=== PATIENT | male | born 1950 | race Caucasian/White ===

== ENCOUNTER 2018-08-05 08:45 | Outpatient (CLI) | payer BC ==
[~2018-08-05 08:45] MED LIST: EPINEPHrine 1 MG/ML AMP ONE; Gadobenate Dimeglumine 529 MG/1 ML (20ML VIAL) ONE; Iopamidol 300 61% 50 ML VIAL FS ONE; Lidocaine 1% PF 10 ML AMP ONE
--- NOTE | 2018-08-05 12:45 | RAD ---
RIGHT SHOULDER ARTHROGRAM: INDICATION: Chronic right shoulder pain. History of remote surgery. Right shoulder weakness. PROCEDURE: Informed consent was obtained. The patient was escorted to the procedural suite and placed in the campbell pine position. The right shoulder was prepped and draped in the standard sterile fashion. Topical a nesthesia was achieved with buffered 1% Lidocaine and subsequently a 22-gauge needle was uneventfully advanced into the right glenohumeral joint confirmed with small volume of contrast. Subsequently, 9 cc contrast cocktail containing Gadolinium radiopaque contrast, saline, epinephrine, and Lidocaine w as instilled into the right shoulder joint, confirmed with fluoroscopic imaging. Imaging was stored for documentation. No procedural complication. RADIATION EXPOSURE DATA: 0.4 minutes intermittent fluoroscopy; 1.9 mGy*^m2. FINDINGS: Contrast opacification within the right shoulder joint. There is osteoarthritis. Reference right shoulder MR arthrogram for additional details. IMPRESSION: Technically successful right shoulder arthrogram as detailed above. POS: [facility]
--- NOTE | 2018-08-05 13:27 | MRI ---
MRI OF THE RIGHT SHOULDER WITH INTRAARTICULAR CONTRAST: INDICATION: Right shoulder pain. COMPARISON: Right shoulder radiographs from a right shoulder arthrogram evaluation dated 08/05/2018. TECHNIQUE: Multiplanar, multisequence MR images were obtained of the right shoulder following the intraarticular administration of dilute Gadolinium solution. Please see the separately dictated right shoulder art hrogram for details concerning the injection technique. FINDINGS: There is a massive rotator cuff tear involving the supraspinatus, subscapularis, and the anterior to mid aspect of the infraspinatus. The supraspinatus tendon is retracted back to the level of the blake ohumeral joint. There is prominent muscular atrophy of the supraspinatus and subscapularis. There i s also complete disruption of the long head of the biceps tendon with retraction of the tendon to the level of the proximal bicipital groove. There is prominent degenerative fraying of the superior gle noid labrum. There is mild osteoarthrosis of the glenohumeral joint. There are degenerative subchon dral cyst-like abnormalities involving the superior aspect of the humeral head. There is mild to mod erate AC joint osteoarthrosis. The inferior glenohumeral ligamentous complex appears within normal l imits. IMPRESSION: 1. Massive rotator cuff tear involving the subscapularis, supraspinatus, and the anterior to mid inf raspinatus with prominent muscular atrophy of the supraspinatus and subscapularis. 2. There is complete disruption of the long head of the biceps tendon with distal retraction to the level of the bicipital groove. 3. Mild osteoarthrosis of the glenohumeral joint. 4. Mild to moderate acromioclavicular joint osteoarthrosis. POS: [facility]
[2018-08-05] MEDS ORDERED: Gadobenate Dimeglumine 529 MG/1 ML (20ML VIAL) ONE (16:47)
== END 2018-08-05 08:46 | disposition home or self-care (01) ==
LOC: RAD 08:45
PROVIDERS: ATTEND Orthopaedic Surgery
DX: R53.1 Weakness (principal); M75.101 Unspecified rotator cuff tear or rupture of right shoulder, not specified as traumatic; M19.011 Primary osteoarthritis, right shoulder
CPT/HCPCS: 23350; A9579; J0171; J7050

== ENCOUNTER 2019-01-20 11:03 | Outpatient (CLI) | payer BC ==
[2019-01-20 11:59] LABS: #Basophils 0.1 thou/uL (0.0-0.2); #Eosinphils 0.2 thou/uL (0.0-0.7); #Lymphocytes 1.4 thou/uL (1.20-3.40); #Monocytes 0.4 thou/uL (0.11-0.59); %Basophils 1.3 % (0.0-1.0); %Eosinophils 4.6 % (0.0-10.0); %Lymphocytes 28.1 % (21.0-51.0); %Monocytes 8.3 % (0.0-10.0); %Neutrophils 57.7 % (42.0-75.0); Hemoglobin 13.4 g/dL (14.0-18.0); Mean Corpuscular HGB CONC 32.8 g/dL (32.0-36.0); Mean Corpuscular Hemoglobin 30.3 pg (27.0-31.0); Mean Corpuscular Volume 92.2 fL (78.0-98.0); Mean Platelet Volume 8.3 fL (7.4-10.4); Platelet Count 274 thou/uL (130-400); RBC Distribution Width 12.7 % (11.5-14.5); Red Blood Cell (RBC) Count 4.44 mill/uL (4.70-6.10); White Blood Cell (WBC) Count 5.1 thou/uL (4.8-10.8)
--- NOTE | 2019-01-20 12:14 | RAD ---
TWO VIEWS OF THE CHEST: COMPARISON: None. HISTORY: Preoperative radiograph. FINDINGS: Two views of the chest show normal sized cardiomediastinal silhouette. There is no evidence of consol idation, mass, or pleural effusion. Degenerative changes are seen in the spine. IMPRESSION: No evidence of acute cardiopulmonary disease. POS: [facility]
[2019-01-20 12:18] LABS: Anion Gap 13 mmol/L (10-20); BUN (Urea Nitrogen) 23 mg/dL (8.4-25.7); Calc. Creatinine Clearance 0 mL/min (70-130); Calcium 9.7 mg/dL (7.8-10.44); Carbon Dioxide 24 mmol/L (23-31); Chloride 106 mmol/L (98-107); Estimated GFR-MDRD 89; Glucose 92 mg/dL (80-115); Potassium 4.9 mmol/L (3.5-5.1); Sodium 138 mmol/L (136-145)
--- NOTE | 2019-01-22 14:09 | EKG ---
Test Reason : Blood Pressure : / mmHG Vent. Rate : 068 BPM Atrial Rate : 068 BPM P-R Int : 182 ms QRS Dur : 090 ms QT Int : 378 ms P-R-T Axes : 071 036 054 degrees QTc Int : 401 ms Normal sinus rhythm Normal ECG No previous ECGs available Confirmed by LADY GORE ([id number]) on 01/22/2019 2:08:27 PM Referred By: DELROY Confirmed By:LADY GORE
== END 2019-01-20 11:04 | disposition home or self-care (01) ==
LOC: LABBT 11:03
PROVIDERS: ATTEND Specialist
DX: Z01.818 Encounter for other preprocedural examination (principal); K40.90 Unilateral inguinal hernia, without obstruction or gangrene, not specified as recurrent
CPT/HCPCS: 71046; 80048; 85025; 93005; 93010

== ENCOUNTER 2019-01-26 06:15 | Day surgery (SDC) | payer BC ==
[2019-01-20 10:43] VITALS: BMI 23.7
[2019-01-26] MEDS ORDERED: Bupivacaine/Epinephrine 0.25% 30 ML VIAL ONE (06:40)
[2019-01-26] MEDS ORDERED: Lidocaine 2% Jelly 5 ML TUBE ONE (06:46)
[2019-01-26] MEDS ORDERED: Fentanyl 100 MCG/2 ML VIAL ONE ×2 (06:46→09:39)
[2019-01-26] MEDS ORDERED: Ketorolac Tromethamine 30 MG/ML VIAL ONE (06:56)
[2019-01-26] MEDS ORDERED: Tamsulosin HCl 0.4 MG CAP ONE (11:27)
[2019-01-26] MEDS ORDERED: Rocuronium Bromide 10 MG/ML (10ML VIAL) ONE (14:53)
[2019-01-26] MEDS ORDERED: Ondansetron PF 4 MG/2 ML Vial ONE (14:53)
[2019-01-26] MEDS ORDERED: Lidocaine 1% PF 5 ML VIAL ONE (14:53)
[2019-01-26] MEDS ORDERED: Dexamethasone 20 MG/5 ML VIAL ONE (14:53)
[2019-01-26] MEDS ORDERED: PROPOFOL 200 MG/20 ML VIAL ONE (14:53)
[2019-01-26] MEDS ORDERED: ePHEDrine 50 MG/ML VIAL ONE (14:53)
[2019-01-26] MEDS ORDERED: Glycopyrrolate 0.2 MG/ML 5 ML SYRINGE ONE (14:53)
--- NOTE | 2019-01-27 03:29 | OP ---
DATE OF PROCEDURE: 01/26/2019 PREOPERATIVE DIAGNOSIS: Left inguinal hernia. POSTOPERATIVE DIAGNOSIS: Left inguinal hernia, direct. OPERATION PERFORMED: Robotic left inguinal hernia repair with a large 3D max mesh patch. ANESTHESIA: General endotracheal. INDICATIONS FOR PROCEDURE: The patient is a 68-year-old white male. He presents with an easily visible and palpable left inguinal hernia. He was taken to the operating room at this time for repair. DESCRIPTION OF OPERATION: Informed consent was obtained. The patient was taken to the operating room, where general anesthesia was obtained with the patient in supine position. Abdomen was prepped with ChloraPrep after Chinchilla catheter was placed and was draped in sterile fashion. Local anesthetic was infiltrated using 0.25% Marcaine with epinephrine. An 11-mm supraumbilical incision was created through which a Veress needle was passed into the peritoneal cavity and pneumoperitoneum was established using carbon dioxide up to pressure of 15 mmHg. An 11-mm trocar port was passed through the same incision and a laparoscopic camera was passed through this port. Under direct vision, 2 additional 8 mm ports were placed on either side of midline at the supraumbilical level. The robot was docked to these three ports and the camera, and the operation was continued from the robotic console. The patient had an easily visible direct inguinal hernia. This was located to the far medial aspect of the direct space. A peritoneal incision was created several centimeters superior to the hernia defect. Preperitoneal dissection was carried inferiorly using sharp dissection and electrocautery. Medially, the Umberto ligament and pubic tubercle were dissected. Laterally, the iliopubic tract was dissected. The peritoneum was dissected off the underlying cord structures and the vas deferens. Through the medial aspect, the peritoneum and all herniated fatty tissue was dissected out of the hernia defect. As mentioned, with far medial, essentially to the level of the pubic tubercle. I obtained a large left-sided 3D max mesh patch and positioned this in the preperitoneal space. The medial aspect of the patch was secured to the pubic tubercle and two additional sutures of 2-0 Vicryl were placed to the anterior abdominal wall, one on the medial aspect of the epigastric vessels and one on the lateral aspect. The peritoneum was then closed with a running suture of 3-0 Stratafix. The operative site was inspected. There was no injury to anything. Hemostasis was meticulous. The fascial defect at the 11 mm port site was closed with 0 Vicryl using a GraNee needle. All ports and instruments were removed under direct vision. Pneumoperitoneum was carefully evacuated. 0.25% Marcaine with epinephrine was infiltrated at each port site. Skin edges were approximated with 4-0 Monocryl subcuticular suture. Dermabond was placed externally. There were no complications. The patient tolerated the procedure well, and was taken to the recovery room in stable condition. Job ID: [id number]
== END 2019-01-26 14:00 | disposition home or self-care (01) ==
LOC: SDC 06:15
PROVIDERS: ATTEND Specialist
PROC: 0YU64JZ Supplement Left Inguinal Region with Synthetic Substitute, Percutaneous Endoscopic Approach (ICD-10-PCS; principal; 2019-01-26)
DX: K40.90 Unilateral inguinal hernia, without obstruction or gangrene, not specified as recurrent (principal); M19.90 Unspecified osteoarthritis, unspecified site; F41.9 Anxiety disorder, unspecified; K21.9 Gastro-esophageal reflux disease without esophagitis; Z79.891 Long term (current) use of opiate analgesic; Z79.899 Other long term (current) drug therapy; Z87.891 Personal history of nicotine dependence
CPT/HCPCS: C1781; J0131; J0690; J1885; J3010

== ENCOUNTER 2020-03-12 09:37 | Outpatient (CLI) | payer BC ==
--- NOTE | 2020-03-12 10:32 | CT ---
CHEST CT WITHOUT CONTRAST: HISTORY: Follow-up 3 separate lung nodules. COMPARISON: Patient does not have a current comparison. Patient forgot the disc with the outside exam. FINDINGS: Mediastinum: No mass, lymphadenopathy or hematoma. Normal heart size. No pericardial effusion. Visualized aorta is normal caliber. No periaortic fat stranding. Visualized solid organs of appropriate attenuation. Trachea and central bronchi are patent. Dependent atelectatic changes. No consolidation or mass. No pleural effusion. Right lung: No suspicious masses or nodules in the right upper lobe. There is a pleural-based nodule adjacent to the minor fissure, measuring 0.6 cm. Nodule appears be so lid, without associated calcification. No additional nodules in the middle lobe. No nodules in the lower lobe. Minimal dependent atelectatic changes are noted. Left lung: No significant nodules in the left upper lobe. There are 2 separate calcified granulomas in the left lower lobe, measuring 0.6 and 0.6 cm. Pneumothorax: None. Osseous structures: No lytic or blastic lesions. IMPRESSION: 1. Two calcified granulomas in the left lung. 2. Noncalcified nodule abutting the minor fissure which may represent a subpleural lymph node. Direct comparison with prior imaging would be beneficial. Transcribed Date/Time: 03/12/2020 10:36 AM
== END 2020-03-12 09:38 | disposition home or self-care (01) ==
LOC: BICCT 09:37
PROVIDERS: ATTEND Internal Medicine
DX: R91.1 Solitary pulmonary nodule (principal); J84.10 Pulmonary fibrosis, unspecified
CPT/HCPCS: 71250

== ENCOUNTER 2021-03-10 09:31 | Outpatient (CLI) | payer BC | END 2021-03-10 09:32 | disposition home or self-care (01) | LOC: BICCT 09:31 | PROVIDERS: ATTEND Internal Medicine Critical Care Medicine | DX: R91.1 Solitary pulmonary nodule (principal) | CPT/HCPCS: 71250 ==